=== PATIENT | male | born 1950 | race Caucasian/White ===

== ENCOUNTER 2022-04-10 08:29 | Outpatient (CLI) | payer BC ==
[2022-04-10] MEDS ORDERED: Magnevist 469MG/ML 20 ML VIAL ONE ×2 (13:09)
== END 2022-04-10 08:30 | disposition home or self-care (01) ==
LOC: CSHMRI 08:29
PROVIDERS: ATTEND Internal Medicine Hematology & Oncology
DX: R77.2 Abnormality of alphafetoprotein (principal); K63.89 Other specified diseases of intestine; Z90.89 Acquired absence of other organs; R16.1 Splenomegaly, not elsewhere classified
CPT/HCPCS: 72197; 74183; A9579

== ENCOUNTER → 2023-07-30 | Day surgery (SDC) | payer BC ==
[~2023-07-30] MED LIST: Sodium Bicarbonate 2.5 MEQ/5 ML VIAL ONE
[2023-07-30 13:17] LABS: Prothrombin Time 10.4 sec (9.5-12.1)
== END ==
LOC: CSHULT 12:03
PROVIDERS: ATTEND Internal Medicine Hematology & Oncology
PROC: 0W9G3ZZ Drainage of Peritoneal Cavity, Percutaneous Approach (ICD-10-PCS; principal; 2023-07-30)
DX: R18.8 Other ascites (principal); C22.0 Liver cell carcinoma; E03.9 Hypothyroidism, unspecified; I10 Essential (primary) hypertension; E78.00 Pure hypercholesterolemia, unspecified; F10.90 Alcohol use, unspecified, uncomplicated; Z87.891 Personal history of nicotine dependence; Z88.5 Allergy status to narcotic agent
CPT/HCPCS: 49083; 85610; 88112; 88305